=== PATIENT | male | born 1960 | race Caucasian/White ===

== ENCOUNTER 2019-03-10 08:32 | Emergency (ER) | payer MEDICARE ==
[~2019-03-10] VITALS: Ht 175.3 cm; Wt 70.0 kg
[2019-03-10] MEDS ORDERED: INHA1INH2 (09:17)
[2019-03-10] MEDS ORDERED: ALBU18HF2 INH (09:17)
[2019-03-10] MEDS ORDERED: BENZ-16 PO (09:17)
[2019-03-10] MEDS ORDERED: pseudoephedrine 30mg tablet PO ONE (09:20)
[2019-03-10] MEDS ORDERED: ibuprofen 200mg tablet PO ONE (09:20)
[2019-03-10] MEDS ORDERED: benzonatate 100mg capsule PO ONE (09:20)
[2019-03-10 09:48] VITALS: BP 93/63
== END 2019-03-10 09:49 | disposition home or self-care (01) ==
LOC: ER 08:33
DX: J98.01 Acute bronchospasm (principal); J44.9 Chronic obstructive pulmonary disease, unspecified; G89.29 Other chronic pain; F17.200 Nicotine dependence, unspecified, uncomplicated; Z88.1 Allergy status to other antibiotic agents; Z88.8 Allergy status to other drugs, medicaments and biological substances
CPT/HCPCS: 99284